=== PATIENT | male | born 1940 ===

== ENCOUNTER 2021-04-19 06:10 | Day surgery (SDC) | payer OTHER | END 2021-04-19 10:50 | disposition home or self-care (01) | LOC: AMB-ENDOS 06:10 | PROVIDERS: ATTEND Colon & Rectal Surgery | DX: D12.3 Benign neoplasm of transverse colon (principal); D12.4 Benign neoplasm of descending colon; K62.1 Rectal polyp; K64.0 First degree hemorrhoids ==